=== PATIENT | male | born 1935 | race Caucasian/White ===

== ENCOUNTER 2018-05-15 19:39 | Observation (INO) | payer OTHER ==
[~2018-05-15] VITALS: Ht 172.7 cm; Wt 76.7 kg
[~2018-05-15 19:39] MED LIST: AMLO10 PO; ATOR80 PO; Aspir-Trin325 MG PO; CHLO25B PO; CLOP75 PO; ENAL2.5; HYDACE5 PO; LISI5 PO; Lopressor 50 mg50 MG PO; NITR.4SL SL; QUET25 PO; TRICOR; VERA120 PO; VERA240ERA
[2018-05-15 20:58] LABS: BASOPHILS ABSOLUTE AUTO 0.04 K/mm3 (0.00-0.23); BASOPHILS PERCENT AUTO 0 % (0-2); EOSINOPHILS ABSOLUTE AUTO 0.15 K/mm3 (0.00-0.68); EOSINOPHILS PERCENT AUTO 1 % (0-6); Hemoglobin 15.9 g/dL (13.5-17.5); IMMATURE GRAN ABSOLUTE AUTO 0.04 K/mm3 (0.00-0.10); IMMATURE GRAN PERCENT AUTO 0 % (0-1); LYMPHOCYTES ABSOLUTE AUTO 1.48 K/mm3 (0.84-5.20); LYMPHOCYTES PERCENT AUTO 13 % (21-46); MONOCYTES ABSOLUTE AUTO 0.82 K/mm3 (0.16-1.47); MONOCYTES PERCENT AUTO 7 % (4-13); Mean Corpuscular HGB 32.8 pg (26.0-34.0); Mean Corpuscular HGB Conc 35.3 g/dL (31.5-36.5); Mean Corpuscular Volume 93 fL (80-100); Mean Platelet Volume 9.4 fL (9.1-12.4); NEUTROPHILS ABSOLUTE AUTO 8.81 K/mm3 (1.96-9.15); NEUTROPHILS PERCENT AUTO 78 % (41-73); Platelet Count 382 K/mm3 (150-400); RDW Coefficient Variation 12.3 % (11.7-14.2); RDW Standard Deviation 42.4 fL (35.1-46.3); Red Blood Cell Count 4.85 M/mm3 (4.30-5.90); White Blood Cell Count 11.34 K/mm3 (4.00-11.30)
[2018-05-15 21:20] LABS: Alanine Aminotransfer (ALT/SGP 29 U/L (12-78); Albumin, Blood 4.1 g/dL (3.4-5.0); Alk Phos 71 U/L (50-136); Anion Gap 9 mmol/L (6-16); Aspartate Aminotrans (AST/SGOT 27 U/L (12-37); Bilirubin, Total 1.9 mg/dL (0.1-1.0); Blood Urea Nitrogen 17 mg/dL (8-24); Bun/Creatinine Ratio 11.4 (12.0-20.0); CO2, Blood 26 mmol/L (21-32); Calcium, Blood 8.7 mg/dL (8.5-10.1); Chloride, Blood 103 mmol/L (98-108); Creatinine, Blood 1.49 mg/dL (0.60-1.20); Ethanol (Alcohol), Blood, Med <3 mg/dL; Glomerular Filtration Rate 48 (60-); Glucose, Blood 99 mg/dL (70-99); Potassium, Blood 3.8 mmol/L (3.5-5.5); Salicylate <1.7 mg/dL (2.8-20.0); Sodium, Blood 138 mmol/L (136-145); Total Protein, Blood 8.1 g/dL (6.4-8.2)
[2018-05-15 21:25] LABS: Acetaminophen, Random <2.0 ug/mL (10.0-30.0)
[2018-05-16 15:57] LABS: Source, Urine Voided
[2018-05-16 16:06] LABS: Appearance, Urine Cloudy (Clear); Bilirubin, Urine Neg (Neg); Blood, Urine 3+ (Neg); Color, Urine Yellow (P-Yellow); Glucose Qualitative, Urine Neg (Neg); Ketones, Urine 1+ (Neg); Leukocyte Esterase, Urine 3+ (Neg); Nitrite, Urine Neg (Neg); Protein, Urine 2+ (Neg); Specific Gravity, Urine 1.015 (1.003-1.022); Urobilinogen, Urine 1+ (Normal)
[2018-05-16 16:20] LABS: Amorphous Mod (0-Heavy); Bacteria Few /hpf; Squamous Epithelial Cells Few /hpf (Few); White Blood Cells, Urine TNTC /hpf (0-5)
[2018-05-16 16:23] LABS: U Amphetamine Screen Not Detected; U Barbituate Screen Not Detected; U Benzodiazapine Screen DETECTED; U Buprenorphine Screen Not Detected; U Cannabinoids Screen Not Detected; U Cocaine Screen Not Detected; U Methadone Screen Not Detected; U Methamphetamine Screen Not Detected; U Opiates Screen Not Detected; U Oxycodone Screen Not Detected; U Phencyclidine Screen Not Detected; U Propoxyphene Screen Not Detected
[2018-05-18 05:38] LABS: BASOPHILS ABSOLUTE AUTO 0.02 K/mm3 (0.00-0.23); BASOPHILS PERCENT AUTO 0 % (0-2); EOSINOPHILS ABSOLUTE AUTO 0.25 K/mm3 (0.00-0.68); EOSINOPHILS PERCENT AUTO 3 % (0-6); Hematocrit 42.2 % (37.0-53.0); Hemoglobin 14.6 g/dL (13.5-17.5); IMMATURE GRAN ABSOLUTE AUTO 0.03 K/mm3 (0.00-0.10); IMMATURE GRAN PERCENT AUTO 0 % (0-1); LYMPHOCYTES ABSOLUTE AUTO 0.97 K/mm3 (0.84-5.20); LYMPHOCYTES PERCENT AUTO 10 % (21-46); MONOCYTES PERCENT AUTO 8 % (4-13); Mean Corpuscular HGB 32.7 pg (26.0-34.0); Mean Corpuscular HGB Conc 34.6 g/dL (31.5-36.5); Mean Corpuscular Volume 94 fL (80-100); Mean Platelet Volume 9.5 fL (9.1-12.4); NEUTROPHILS ABSOLUTE AUTO 7.62 K/mm3 (1.96-9.15); NEUTROPHILS PERCENT AUTO 79 % (41-73); Platelet Count 326 K/mm3 (150-400); RDW Coefficient Variation 12.4 % (11.7-14.2); RDW Standard Deviation 43.2 fL (35.1-46.3); Red Blood Cell Count 4.47 M/mm3 (4.30-5.90); White Blood Cell Count 9.69 K/mm3 (4.00-11.30)
[2018-05-18 06:04] LABS: Bun/Creatinine Ratio 17.2 (12.0-20.0); Calcium, Blood 8.8 mg/dL (8.5-10.1); Creatinine, Blood 1.51 mg/dL (0.60-1.20); Potassium, Blood 3.8 mmol/L (3.5-5.5)
[2018-05-20 13:50] LABS: BASOPHILS ABSOLUTE AUTO 0.02 K/mm3 (0.00-0.23); BASOPHILS PERCENT AUTO 0 % (0-2); EOSINOPHILS ABSOLUTE AUTO 0.16 K/mm3 (0.00-0.68); EOSINOPHILS PERCENT AUTO 3 % (0-6); Hemoglobin 13.9 g/dL (13.5-17.5); IMMATURE GRAN ABSOLUTE AUTO 0.02 K/mm3 (0.00-0.10); IMMATURE GRAN PERCENT AUTO 0 % (0-1); LYMPHOCYTES ABSOLUTE AUTO 0.81 K/mm3 (0.84-5.20); LYMPHOCYTES PERCENT AUTO 17 % (21-46); MONOCYTES ABSOLUTE AUTO 0.71 K/mm3 (0.16-1.47); MONOCYTES PERCENT AUTO 15 % (4-13); Mean Corpuscular HGB Conc 33.9 g/dL (31.5-36.5); Mean Platelet Volume 9.5 fL (9.1-12.4); NEUTROPHILS ABSOLUTE AUTO 3.11 K/mm3 (1.96-9.15); NEUTROPHILS PERCENT AUTO 64 % (41-73); Platelet Count 309 K/mm3 (150-400); RDW Coefficient Variation 12.6 % (11.7-14.2); RDW Standard Deviation 45.1 fL (35.1-46.3); Red Blood Cell Count 4.21 M/mm3 (4.30-5.90); White Blood Cell Count 4.83 K/mm3 (4.00-11.30)
[2018-05-20 13:52] LABS: Mean Corpuscular Volume 97 fL (80-100)
[2018-05-20 14:47] LABS: Albumin, Blood 3.4 g/dL (3.4-5.0); Anion Gap 11 mmol/L (6-16); Blood Urea Nitrogen 31 mg/dL (8-24); Bun/Creatinine Ratio 20.3 (12.0-20.0); CO2, Blood 26 mmol/L (21-32); Calcium, Blood 8.9 mg/dL (8.5-10.1); Chloride, Blood 102 mmol/L (98-108); Creatinine, Blood 1.53 mg/dL (0.60-1.20); Glomerular Filtration Rate 46 (60-); Glucose, Blood 123 mg/dL (70-99); Phosphorus, Blood 3.5 mg/dL (2.5-4.9); Potassium, Blood 3.9 mmol/L (3.5-5.5); Sodium, Blood 139 mmol/L (136-145)
[2018-05-22 07:47] LABS: Source, Urine Clean Catch
[2018-05-22 08:01] LABS: Bilirubin, Urine Neg (Neg); Blood, Urine Neg (Neg); Glucose Qualitative, Urine Neg (Neg); Ketones, Urine Neg (Neg); Leukocyte Esterase, Urine Neg (Neg); Nitrite, Urine Neg (Neg); Protein, Urine Neg (Neg); Urobilinogen, Urine NORM (Normal)
[2018-05-22 08:08] LABS: Appearance, Urine Clear (Clear); Color, Urine Yellow (P-Yellow)
[2018-05-23] MEDS ORDERED: QUET100 PO (14:07)
[2018-05-23] MEDS ORDERED: ASPI81CH PO (14:07)
[2018-05-23] MEDS ORDERED: Synthroid25 MCG PO (14:08)
== END 2018-05-23 17:15 | disposition home or self-care (01) ==
LOC: ER 19:39 → EOR 19:40 → MEDS 19:40 → EOR 19:40 → MEDS 05-17 11:30
PROVIDERS: Emergency Medicine; Family Medicine; Hospitalist
DX: F22 Delusional disorders (principal); G93.40 Encephalopathy, unspecified; G30.9 Alzheimer's disease, unspecified; F02.81 Dementia in other diseases classified elsewhere, unspecified severity, with behavioral disturbance; N39.0 Urinary tract infection, site not specified; N28.9 Disorder of kidney and ureter, unspecified; I12.9 Hypertensive chronic kidney disease with stage 1 through stage 4 chronic kidney disease, or unspecified chronic kidney disease; N18.3 Chronic kidney disease, stage 3 (moderate); E03.9 Hypothyroidism, unspecified; I25.2 Old myocardial infarction; Z87.891 Personal history of nicotine dependence; Z79.82 Long term (current) use of aspirin; Z79.899 Other long term (current) drug therapy
CPT/HCPCS: 36415; 71046; 80048; 80053; 80069; 81001; 81003; 84443; 85025; 87040; 87077; 87086; 87186; 96372; 99285-25; G0378; G0480; J1650; Q3014

== ENCOUNTER 2020-11-28 15:44 | Inpatient (IN) | payer OTHER ==
[~2020-11-28] VITALS: Ht 177.8 cm; Wt 82.7 kg
[~2020-11-28 15:44] MED LIST changes: +ASPI81CH PO; +QUET100 PO; +Synthroid25 MCG PO
[2020-11-28] MEDS ORDERED: ALLO100 PO (16:02)
[2020-11-28] MEDS ORDERED: BUSP10 PO (16:02)
[2020-11-28] MEDS ORDERED: THERA-D2000 UNIT PO (16:02)
[2020-11-28] MEDS ORDERED: DONE5 PO (16:02)
[2020-11-28] MEDS ORDERED: LEVSOD75 PO (16:03)
[2020-11-28] MEDS ORDERED: LOSA50 PO (16:03)
[2020-11-28] MEDS ORDERED: LOSA25 PO (16:03)
[2020-11-28] MEDS ORDERED: QUET100 PO (16:04)
[2020-11-28] MEDS ORDERED: NITR.4SL SL (16:04)
[2020-11-28] MEDS ORDERED: MELA3 PO (16:04)
[2020-11-28] MEDS ORDERED: SENN187 PO (16:04)
[2020-11-28] MEDS ORDERED: TAMS.4ER PO (16:05)
[2020-11-28] MEDS ORDERED: ACET500 PO (19:30)
[2020-11-29 04:21] LABS: BASOPHILS ABSOLUTE AUTO 0.02 K/mm3 (0.00-0.23); BASOPHILS PERCENT AUTO 0 % (0-2); EOSINOPHILS ABSOLUTE AUTO 0.02 K/mm3 (0.00-0.68); EOSINOPHILS PERCENT AUTO 0 % (0-6); Hematocrit 38.5 % (37.0-53.0); Hemoglobin 12.7 g/dL (13.5-17.5); IMMATURE GRAN ABSOLUTE AUTO 0.07 K/mm3 (0.00-0.10); IMMATURE GRAN PERCENT AUTO 1 % (0-1); LYMPHOCYTES ABSOLUTE AUTO 0.93 K/mm3 (0.84-5.20); LYMPHOCYTES PERCENT AUTO 7 % (21-46); MONOCYTES PERCENT AUTO 7 % (4-13); Mean Corpuscular HGB 29.1 pg (26.0-34.0); Mean Corpuscular Volume 88 fL (80-100); Mean Platelet Volume 9.8 fL (9.1-12.4); NEUTROPHILS ABSOLUTE AUTO 10.78 K/mm3 (1.96-9.15); NEUTROPHILS PERCENT AUTO 85 % (41-73); Platelet Count 361 K/mm3 (150-400); RDW Coefficient Variation 13.8 % (11.7-14.2); RDW Standard Deviation 44.7 fL (35.1-46.3); Red Blood Cell Count 4.37 M/mm3 (4.30-5.90); White Blood Cell Count 12.72 K/mm3 (4.00-11.30)
[2020-11-29 04:39] LABS: Albumin, Blood 3.1 g/dL (3.4-5.0); Albumin/Globulin Ratio 0.7 (0.8-1.8); Bilirubin, Total 1.8 mg/dL (0.1-1.0); Bun/Creatinine Ratio 19.5 (12.0-20.0); Creatinine, Blood 1.54 mg/dL (0.60-1.20); Globulin, Blood 4.5 g/dL (2.2-4.0); Potassium, Blood 3.8 mmol/L (3.5-5.5); Total Protein, Blood 7.6 g/dL (6.4-8.2)
--- NOTE | 2020-11-29 05:27 | NUR ---
SHIFT SUMMARY S/P ACUTE DIVERTICULITIS W/ ABSCESSES, ALERT BUT PLEASANTLY CONFUSED, ORIENTED TO SELF AND FAMILY ONLY, REORIENTS EASILY, DOESN'T USE CALL LIGHT WHEN GETTING UP TO USE BATHROOM, BED ALARM ON FOR SAFETY, VSS, NPO SINCE ADMISSION, ADMIT COMPLETED, CONSENTS NOT SIGNED PT IS UNABLE TO GIVE INFORMED CONSENT, NO ACUTE EVENTS THIS SHIFT. CALL LIGHT IN REACH, WILL CONTINUE TO MONITOR AND REPORT TO ONCOMING DAY RN.
--- NOTE | 2020-11-29 19:10 | NUR ---
SHIFT SUMMARY PATIENT PLEASANTLY CONFUSED THROUGHOUT SHIFT. IMPULSIVE. GETS UP WITHOUT CALLING TO USE BATHROOM. BED ALARM ON. TOLERATING CLEAR LIQUIDS. ABD TENDER TO RIGHT SIDE. BM TODAY. GENERAL SURGERY PLANS TO MANAGE WITH FLUIDS AND ABX. FLUIDS AND ABX RUNNING ALL SHIFT. PT PULLED OUT IV AT END OF SHIFT. THIS RN FAILED [address] A NEW IV. REPORT GIVEN TO CREW CLERK RN.
--- NOTE | 2020-11-30 07:44 | NUR ---
SHIFT SUMMARY S/P ACUTE DIVERTICULITIS, CONSULTED NON SURGICAL, TAKING ABX FOR TREATMENT, ALERT AND PLEASANTLY CONFUSED, ORIENTED TO SELF AND FAMILY ONLY BUT REORIENTS EASILY, 1 PERSON SBA TO BATHROOM, PT NOT ABLE TO VOID THIS SHIFT, ORDER FOR STRAIGHT CATH OBTAINED AND ADMINISTERED TO GET 465ML OUT, PT TOLERATED STRAIGHT CATH WELL, DENIES PAIN OTHER THAN DURING PALPATION. NO OTHER EVENTS THIS SHIFT. CALL LIGHT IN REACH, REPORT GIVEN TO DAY RN.
[2020-11-30 11:59] LABS: BASOPHILS ABSOLUTE AUTO 0.01 K/mm3 (0.00-0.23); BASOPHILS PERCENT AUTO 0 % (0-2); EOSINOPHILS ABSOLUTE AUTO 0.04 K/mm3 (0.00-0.68); EOSINOPHILS PERCENT AUTO 0 % (0-6); Hematocrit 31.3 % (37.0-53.0); Hemoglobin 10.5 g/dL (13.5-17.5); IMMATURE GRAN ABSOLUTE AUTO 0.06 K/mm3 (0.00-0.10); IMMATURE GRAN PERCENT AUTO 1 % (0-1); LYMPHOCYTES ABSOLUTE AUTO 0.78 K/mm3 (0.84-5.20); LYMPHOCYTES PERCENT AUTO 6 % (21-46); MONOCYTES ABSOLUTE AUTO 0.95 K/mm3 (0.16-1.47); MONOCYTES PERCENT AUTO 8 % (4-13); Mean Corpuscular HGB 29.5 pg (26.0-34.0); Mean Corpuscular HGB Conc 33.5 g/dL (31.5-36.5); Mean Corpuscular Volume 88 fL (80-100); Mean Platelet Volume 9.8 fL (9.1-12.4); NEUTROPHILS ABSOLUTE AUTO 10.29 K/mm3 (1.96-9.15); NEUTROPHILS PERCENT AUTO 85 % (41-73); Platelet Count 303 K/mm3 (150-400); RDW Coefficient Variation 13.8 % (11.7-14.2); RDW Standard Deviation 44.9 fL (35.1-46.3); Red Blood Cell Count 3.56 M/mm3 (4.30-5.90); White Blood Cell Count 12.13 K/mm3 (4.00-11.30)
--- NOTE | 2020-11-30 16:01 | NUR ---
NO VOID PT HAS NOT VOIDED THIS SHIFT. BS SHOWED 222 ML. DISCUSSED W/DR MCDOWELL. CONTINUE FLUIDS AT 125 ML/HR AND ENCOURAGE ORAL FLUID INTAKE.
--- NOTE | 2020-11-30 18:49 | NUR ---
SUMMARY PT ENCOURAGED TO INCREASE PO FLUID INTAKE. HAD NOT VOIDED BY 1500M BS SHOWED 222. DISCUSSED W/ DR MCDOWELL. PT HAD SMALL UNMEASURED VOID WHEN HAD BM. SLEPT UNTIL APPROXIMATELY UNTIL 1300. CAME IN AND VISITED W/PT. PT SAT UP FOR DINNER. NOW BACK TO BED. BED ALARM ON. CALL LIGHT IN REACH.
--- NOTE | 2020-12-01 06:36 | NUR ---
SHIFT SUMMARY S/P ACUTE DIVERTICULITIS W/ ABCSESS, ALERT AND PLEASANTLY CONFUSED, REORIENTS EASILY, COOPERATIVE W/ ALL NURSING CARE, VSS, TOLERATING PO BUT HAS NOT HAD MUCH PO FLUID INTAKE DESPITE ENCOURAGEMENT W/ ROUNDING AND CARE, PT REPORTS LIKING THE CLEAR ENSURES, AMBULATES TO THE BATHROOM W/ 1 PERSON SBA AFTER GETTING HELP UP TO HIS FEET, NO VOIDS THIS SHIFT, BLADDER SCANNED FOR 396 THEN STRAIGHT CATHED FOR 475. NO OTHER ACUTE EVENTS THIS SHIFT, CALL LIGHT IN REACH, WILL CONTINUE TO MONITOR AND REPORT TO ONCOMING DAY RN.
--- NOTE | 2020-12-01 18:20 | NUR ---
SHIFT SUMMARY PT AXO TO SELF, FOLLOWING DIRECTIONS AND SPOUSE BUT IS FORGETFUL AND THIN[facility] PLEASANT AND COOPERATIVE WITH CARE. UP WITH 1 ASSIST WITH FWW TO BATHROOM. PT HAD SMALL SOFT BM THIS SHIFT. PT REPORTS MINOR PAIN TO RLQ. ADVANCED DIET PER DR MCDOWELL THIS SHIFT. TOLERATING WELL. POSIT[facility]LOOD [facility]ULT[facility] THIS [facility]. CANDE SIGNED BY PATIENT FAXED FOR RESULTS OF CULTURE AND SENSITIVITY, AWAITING REPLY AT AT THIS TIME. IV PATENT AND INFUSING PER EMAR. BED IN LOW POSITION, CALL LIGHT WITHIN REACH, BED ALARM ON. BLADDER SCAN THIS SHIFT, 250 ML RETAINED. NO STRAIGHT CATH COMPLETED THIS SHIFT.
--- NOTE | 2020-12-02 06:36 | NUR ---
SUMMARY PT WITH NO C/O PAIN. VOIDING AND HAD BM TONIGHT.PT WAS ASSISTED FOR BRP AND HE WANTED COMPLETE PRIVACY WITH BATHROOM DOOR SHUT AND WAS ADVISED FOR SAFETY WOULD NEED TO KEEP DOOR SLIGHTLY AJAR FOR MONITORING OF SAFETY AND ASSIST NEED. PT GRABBED DOOR HANDLE AND LOCKED SELF IN.SAMANTHA REES WAS ABLE TO TALK PT INTO UNLOCKING DOOR.PT SLEEPING AND CALM AFTER WHEN AWAKE.
--- NOTE | 2020-12-02 18:11 | NUR ---
SHIFT SUMMARY PT HAS DONE WELL TODAY WITH ACTIVITY, WAS UP AMBULATING x 2. HE HAD A BM AND IS VOIDING WELL. BUT UNFORTUNATLY, DOES NOT HAVE MUCH OF AN APPETITE. ONLY TAKEN A FEW SIPS OF ENSURE & AN ICE CREAM.
[2020-12-03 04:51] LABS: BASOPHILS ABSOLUTE AUTO 0.03 K/mm3 (0.00-0.23); BASOPHILS PERCENT AUTO 0 % (0-2); EOSINOPHILS ABSOLUTE AUTO 0.25 K/mm3 (0.00-0.68); EOSINOPHILS PERCENT AUTO 3 % (0-6); Hematocrit 29.1 % (37.0-53.0); Hemoglobin 9.8 g/dL (13.5-17.5); IMMATURE GRAN ABSOLUTE AUTO 0.08 K/mm3 (0.00-0.10); IMMATURE GRAN PERCENT AUTO 1 % (0-1); LYMPHOCYTES ABSOLUTE AUTO 0.99 K/mm3 (0.84-5.20); LYMPHOCYTES PERCENT AUTO 12 % (21-46); MONOCYTES ABSOLUTE AUTO 0.66 K/mm3 (0.16-1.47); MONOCYTES PERCENT AUTO 8 % (4-13); Mean Corpuscular HGB 29.3 pg (26.0-34.0); Mean Corpuscular HGB Conc 33.7 g/dL (31.5-36.5); Mean Corpuscular Volume 87 fL (80-100); NEUTROPHILS ABSOLUTE AUTO 6.27 K/mm3 (1.96-9.15); NEUTROPHILS PERCENT AUTO 76 % (41-73); Platelet Count 325 K/mm3 (150-400); RDW Coefficient Variation 13.6 % (11.7-14.2); RDW Standard Deviation 43.2 fL (35.1-46.3); Red Blood Cell Count 3.35 M/mm3 (4.30-5.90); White Blood Cell Count 8.28 K/mm3 (4.00-11.30)
[2020-12-03 05:18] LABS: Bun/Creatinine Ratio 13.1 (12.0-20.0); Calcium, Blood 8.1 mg/dL (8.5-10.1); Creatinine, Blood 1.37 mg/dL (0.60-1.20); Potassium, Blood 3.4 mmol/L (3.5-5.5)
--- NOTE | 2020-12-03 06:25 | NUR ---
SHIFT SUMMARY A/O TO SELF ONLY. UP TO BATHROOM WITH 1 ASSIST AND FWW. RLQ REMAINS TENDER. DENIES PAIN AT THIS TIME. IV ABX GIVEN X2 THIS SHIFT. VSS, NO ACUTE CHANGES AT THIS TIME. BED IN LOWEST POSITION WITH CALL LIGHT IN REACH. WILL CONTINUE TO MONITOR AND REPORT TO ONCOMING RN.
--- NOTE | 2020-12-03 15:34 | NUR ---
Received copies of Pt's POLST and [place]hip documents from [place] via fax. Pt resting in recliner chair upon arrival. Spouse Lila is at bedside. Pt is A&OX2 and pleasantly confused. Pt denies pain at this time. Engaged in therapeutic discussion with spouse Lila regarding advanced care planning. Discussed current medical history and comorbidities including Alzheimer's Disease. Educated on disease process including trajectory of disease. Discussed the importance of planning for the future and developing multiple plans with PCP as disease progresses. Offered therapeutic listening and answered questions. Lila expresses appreciation of visit. She inquires about CT results. Instructed Lila request will be relayed to hospitalist. No other concerns reported at this time. Called Dr Mckeon and relayed spouse's request for CT results. Delivered copy of Pt's POLST and Guardianship documents to medical records. Palliative Care will remain available.
--- NOTE | 2020-12-03 17:46 | NUR ---
SHIFT SUMMARY ALERT AND OREINTED TO SELF AND ONLY. CONFUSED BUT VERY PLEASANT W/ STAFF. VSS, UP IN CHAIR MOST OF SHIFT. AMBULATED WELL W/ THERAPY X1. POOR APPETITE T/O SHIFT, BUT DRINKING WATER AND ENSURE. CALL LIGHT IN REACH, BED ALARM ON, WILL CONTINUE TO MONITOR.
--- NOTE | 2020-12-03 22:42 | NUR ---
PT AGREES TO STUDENT PARTICIPATION IN CARE
--- NOTE | 2020-12-04 03:29 | NUR ---
SHIFT SUMMARY: SBO /DIVERTICULITUS/IVABX PT IS A&O TO SELF/ AND OCCASSIONALLY PLACE. PLEASANT AFFECT WITH GOOD EYE CONTACT SPEECH IS SLOW BUT APPROPERIATE FOR CURRENT MENTAL STATE. PT FORGETS LIMITATIONS AND BED ALARM IS IN PLACE. CURRENTLY RECEIVING IV ABX W/TKO FLUID. 20G IN LEFT ARM WHICH IS PATENT. PT IS INTERMITENTLY INCONTINENT WHICH HE STATES IS DRIBBLE. PT STATES LOOSE STOOL AND SENSE OF URGENCY AT TIMES. ENCOURAGED TO REPOSTION PT LIKE TO HANG FEET OFF BED. HOB @30 AND CALL LIGHT IN WITHIN REACH.
--- NOTE | 2020-12-04 05:24 | NUR ---
PT REFUSING AM PO MEDS AT THIS TIME. PT REFUSING TO ATTEMPT TO URINATE AT THIS TIME AND IS REFUSING BLADDER SCAN, REQUESTING FOR NURSING STAFF TO "COME BACK LATER." BED ALARM ON + CALL LIGHT WITHIN REACH. WILL CONTINUE TO ENCOURAGE RESTROOM THIS AM.
--- NOTE | 2020-12-04 18:18 | NUR ---
SHIFT SUMMARY VSS, REMAINS ALERT AND ONLY ORIENTED TO SELF AND T/O SHIFT. PT EATING SLIGHTLY MORE TODAY. ONE SMALL, LOOSE BM THIS AM. PT REPORTS PAIN TO BE TOLERABLE AND ABD "FEELING BETTER". PT HAS BECOME RESTLESS THIS AFTERNOON, AMBULATED HALLWAY W/ ASSISTANCE. RE-ORIENTS BACK TO ROOM AND SURROUNDINGS WELL. TAB ALARM IN PLACE, CALL LIGHT IN REACH, WILL CONTINUE TO MONITOR.
--- NOTE | 2020-12-05 03:18 | NUR ---
PATIENT ALERT, ORIENTED TO SELF AND FAMILY ONLY. VSS ON RA. DENIES PAIN. SLEEPING B/W CARE. BED AND TAB ALARMS IN PLACE FOR SAFTEY.
[2020-12-05 07:20] LABS: SARS-Cov-2 (COVID-19) PCR, MMC NEGATIVE (NEGATIVE)
--- NOTE | 2020-12-05 10:01 | NUR ---
REPORT GIVEN TO CABRERA DHILLON AT [facility]. AWAITING PT TRANSPORT AT THIS TIME. IV DC'D WNL. PT IS AT BEDSIDE AND AWARE OF THE TRANSFER
--- NOTE | 2020-12-05 10:53 | NUR ---
[facility] HERE FOR PT AT ABOUT 1040, GIVEN DC PACKET. PT LEFT VIA WHEELCHAIR AT 1045.
== END 2020-12-05 10:30 | DRG 392 ==
LOC: ER 15:44 → SURS 17:06
PROVIDERS: Student in an Organized Health Care Education/Training Program; Surgery; ADMIT Hospitalist
DX: K57.20 Diverticulitis of large intestine with perforation and abscess without bleeding (principal); R78.81 Bacteremia; I25.2 Old myocardial infarction; G30.9 Alzheimer's disease, unspecified; F02.80 Dementia in other diseases classified elsewhere, unspecified severity, without behavioral disturbance, psychotic disturbance, mood disturbance, and anxiety; Z20.822 Contact with and (suspected) exposure to COVID-19; Z87.891 Personal history of nicotine dependence; I12.9 Hypertensive chronic kidney disease with stage 1 through stage 4 chronic kidney disease, or unspecified chronic kidney disease; I25.10 Atherosclerotic heart disease of native coronary artery without angina pectoris; N18.30 Chronic kidney disease, stage 3 unspecified; E03.9 Hypothyroidism, unspecified; Z66 Do not resuscitate; K66.8 Other specified disorders of peritoneum
CPT/HCPCS: 36415; 51701; 74177; 80048; 80053; 82565; 85025; 87040; 96374; 96376; 97116; 97162; 97530; 99285-25; A9270; J1644; J2543; J7040; J7120; Q9967; U0004